=== PATIENT | male | born 1975 | race African-American/Black ===

== ENCOUNTER → 2017-09-24 | Day surgery (SDC) | payer OTHER ==
[~2017-09-24] VITALS: Ht 180.3 cm; Wt 104.3 kg
[~2017-09-24] MED LIST: PERCOCET 5-3251 EACH PO
--- NOTE | 2017-09-24 15:18 | Operative Report ---
Operative/Inv Procedure Report Surgery Date: 09/24/17 Name of Procedure: Open repair of ventral/umbilical hernia with a small mesh plug Excision of mass left forehead Pre-Operative Diagnosis: Ventral/umbilical hernia Mass left forehead Post-Operative Diagnosis: Same Estimated Blood Loss: scant Surgeon/Frame Assembler: Tao HARP,Georges GAYTAN Anesthesia: general endotracheal tube Specimens: Mass left forehead Complications: None Operative/Procedure Note Note: The patient was placed on the operating table in the supine position. After a team timeout was taken the patient was placed under general anesthesia. The abdomen was prepped and draped in the usual sterile manner. 0.5% Marcaine was locally infiltrated in the infraumbilical area. An infra umbilical incision was made and carried down through the skin and subcutaneous tissue. The base of the umbilicus was sharply dissected away from the hernia. The hernia was then circumferentially dissected down to the fascia using the electrocautery device for hemostasis. The fascial defect was actually quite small and the contents were incarcerated. I was able to reduce the hernia sac which was fat tissue into the fascial defect. No other fascial defects were noted in the area. There was a little redundant fat tissue to the left side of the repair which was resected with the electrocautery device. No second fascial defect was palpated at the bottom of that pad. A small mesh plug was soaked in bacitracin antibiotic solution and then placed into the defect. This totally obliterated the fascial defect. The mesh was sutured to the fascia with a [id number] 0 Vicryl suture which caught the fascia above and below the defect and the mesh in the middle defect. The suture was tied down closing the fascial defect over the mesh. The area was irrigated out with bacitracin antibiotic solution. Hemostasis was noted to be good. The base of the umbilicus was tacked to the fascia with a 3-0 Vicryl suture. Subcutaneous tissue was closed with interrupted 3-0 Vicryl suture. The skin was closed with a running subcuticular 5-0 Vicryl suture. Steri-Strips and a sterile dressing were applied. All drapes were then removed and attention was turned to the forehead lesion. The forehead was separately prepped and draped in the usual sterile manner. A transverse incision was made over the mass and taken down through the skin and subcutaneous tissue. The deeper tissue was entered and a lipomatous type lesion was identified and completely excised. Hemostasis was obtained with the electrocautery device. The wound was then closed in layers with 5-0 Vicryl in the deeper tissue and 5-0 Vicryl subcuticular skin closure. Steri-Strips and a sterile dressing were applied. The patient tolerated both procedures well and was taken to the recovery room with stable vital signs.
== END ==
LOC: STS 01:50
DX: K42.9 Umbilical hernia without obstruction or gangrene (principal); D21.0 Benign neoplasm of connective and other soft tissue of head, face and neck
CPT/HCPCS: J0131; J1100; J1885; J2250; J2405; J3490